=== PATIENT | male | born 1975 | race Caucasian/White ===

== ENCOUNTER 2021-04-09 17:40 | Inpatient (IN) | payer MEDICAID ==
[~2021-04-09] VITALS: Ht 185.4 cm; Wt 88.9 kg
--- NOTE | 2021-04-09 18:11 | NUR ---
[id number] FRM HOME FOR CHEST PAIN/PALPITATION. SVT AT SCENE. ADENOSINE 6MG GIVEN WASTE BALER. RATES CHEST PAIN 5/10. IN ROOM AIR AND DENIES SOB. RESPIRATION REGULAR AND UNLABORED. ATTACHED TO THE MONITOR.
[2021-04-09] MEDS ORDERED: ASPIRIN 325 MG TABLET ONE (18:17)
[2021-04-09] MEDS ORDERED: METOPROLOL TARTRATE INJ 5 MG/5 ML AMPUL ONE ×2 (18:17→19:48)
[2021-04-09 18:26] LABS: BASOPHILS # (AUTO) 0.1 K/uL (0.0-0.2); LYMPHOCYTES # (AUTO) 1.7 K/uL (0.8-4.8)
[2021-04-09 18:30] LABS: BASOPHILS % (AUTO) 0.7 % (0.0-2.0); EOSINOPHILS % (AUTO) 5.9 % (0.0-6.0); HEMATOCRIT 53 % (39-51); HEMOGLOBIN 18.3 g/dL (13.5-17.5); LYMPHOCYTES % (AUTO) 18.8 % (20.0-44.0); MEAN CORPUSCULAR HGB CONC 35 g/dl (31.0-36.0); MEAN CORPUSCULAR VOLUME 91 fL (80-96); MONOCYTES # (AUTO) 0.8 K/uL (0.1-1.30); MONOCYTES % (AUTO) 8.7 % (2.0-12.0); NEUTROPHILS # (AUTO) 5.9 K/uL (1.8-8.9); NEUTROPHILS % (AUTO) 65.9 % (43.0-81.0); PLATELET COUNT (AUTO) 173 K/uL (150-450); RED BLOOD CELL COUNT(AUTO) 5.81 MIL/uL (4.5-6.0); WHITE BLOOD COUNT (AUTO) 8.9 K/uL (4.3-11.0)
[2021-04-09] MEDS ORDERED: METOPROLOL TARTRATE INJ 5 MG/5 ML AMPUL IVP ONE (18:30)
[2021-04-09] MEDS ORDERED: ASPIRIN 325 MG TABLET PO ONE (18:30)
[2021-04-09 18:46] LABS: ALBUMIN 4.3 g/dL (3.4-5.0); BILIRUBIN,DIRECT 0.3 mg/dL (0.0-0.2); BILIRUBIN,TOTAL 2.5 mg/dL (0.2-1.0); CREATININE 1.4 mg/dL (0.6-1.3); POTASSIUM 3.8 mmol/L (3.5-5.1); TOTAL PROTEIN, SERUM 7.6 g/dL (6.4-8.2)
--- NOTE | 2021-04-09 19:26 | NUR ---
ENDORSED TO KEYON GANNON.
[2021-04-09 19:30] LABS: EOSINOPHILS % (MANUAL) 7 % (0-4); LYMPHOCYTES % (MANUAL) 29 % (16-48); MONOCYTES % (MANUAL) 5 % (0-11.0); NEUTROPHILS % (MANUAL) 59 (42-76)
--- NOTE | 2021-04-09 19:34 | NUR ---
AMEENAID SWABBED, SENT TO LAB.
--- NOTE | 2021-04-09 19:58 | NUR ---
NOTED PT'S HR TO BE IN THE 170'S, ER MD AWARE. AWAITING ORDERS.
--- NOTE | 2021-04-09 19:59 | NUR ---
LOPRESSOR 5MG IVP ORDER PLACED BY JUANY MAJANO. PT'S ANAYELI 88/75. OKAY TO GIVE LOPRESSOR BY JUANY MAJANO.
[2021-04-09] MEDS ORDERED: METOPROLOL TARTRATE INJ 5 MG/5 ML AMPUL IV ONE (20:00)
[2021-04-09] MEDS ORDERED: IV NS 0.9% 1,000 ML BAG IV ONE (20:00)
[2021-04-09] MEDS ORDERED: ADENOSINE 6 MG/2 ML VIAL ONE (20:06)
--- NOTE | 2021-04-09 20:17 | NUR ---
ER MD ORDERED ADENOSINE 6MG IVP. BEFORE ADMINISTERING THE MEDICATION, PT CONVERTED TO SR 81. ADENOSINE HELD.
[2021-04-09] MEDS ORDERED: ADENOSINE 6 MG/2 ML VIAL IVP ONE (20:30)
--- NOTE | 2021-04-09 20:45 | NUR ---
tele [phone]
--- NOTE | 2021-04-09 20:55 | NUR ---
REPORT GIVEN TO DONNIE GANNON FOR JOI
[2021-04-09 21:00] VITALS: BP 92/69
--- NOTE | 2021-04-09 21:00 | NUR ---
HEALTH PROMOTION COORDINATORPROTECTIVE SERVICES CASE WORKER NOTE PT TRANSPORTED VIA GURNEY TO UNIT AT THIS TIME. PT ADMITTED TO TELE UNDER DR. FERRO FOR ADMITTING DX OF PSVT. A/O X3 WITH PERIODS OF CONFUSION. PT IS STABLE ON ROOM AIR. NO SOB OR S/S OF RESPIRATORY DISTRESS NOTED. PT ON EXTERNAL VOCATIONAL REHABILITATION TEACHER READING SR AT 75 BPM. PT HAS NO C/O PAIN OR DISCOMFORT AT THIS TIME. IV ACCESS IN RAC #18, INTACT AND PATENT. ORIENTED PT TO STAFF, UNIT, AND ROOM. SAFETY PRECAUTIONS MAINTAINED. BED IN LOWEST LOCKED POSITION, HOB ELEVATED, SIDE RAILS UP X2, BED ALARM ON. CALL LIGHT AND TABLE WITHIN REACH. WILL CONTINUE TO MONITOR.
--- NOTE | 2021-04-09 21:17 | NUR ---
Ju reilly in [facility] - 04/09/21 at 2117 by JARET PATIENT TAKEN UP TO ASSIGNED ROOM VIA ACLS PROTOCOLS
--- NOTE | 2021-04-09 21:17 | NUR ---
PATIENT TAKEN UP TO ASSIGNED ROOM VIA ACLS PROTOCOLS
--- NOTE | 2021-04-09 21:20 | NUR ---
PT TRANSFERED PER ACLS PROTOCOL
[2021-04-09] MEDS ORDERED: ZOLPIDEM TARTRATE 5 MG TABLET PO PRN (21:30)
[2021-04-09] MEDS ORDERED: ACETAMINOPHEN 650 MG/20.3 ML UDC PO PRN (21:30)
--- NOTE | 2021-04-09 23:12 | NUR ---
RN NOTE INFORMED DR. FERRO THAT PT'S TROPONIN RESULTED AT 1.773. PREVIOUSLY AT 0.166. RECEIVED ORDERS TO KEEP PT NPO POST MIDNIGHT AND START IVF D5 NS @ 75ML/HR. ORDERS READ BACK AND CARRIED OUT. WILL CONTINUE TO MONITOR.
[2021-04-09] MEDS ORDERED: IV D5/ 0.9% NACL 1,000 ML IV ONE (23:30)
[2021-04-10] VITALS: BP_SYST 86; BP_SYST 99; BP_DIAS 60; BP_DIAS 61
--- NOTE | 2021-04-10 06:32 | NUR ---
WAX BALL MOLDER CLOSING NOTE PT IS IN BED WITH EYES CLOSED, AROUSABLE TO STIMULATION. A/O X3. PT IS STABLE ON ROOM AIR. NO SOB OR S/S OF RESPIRATORY DISTRESS NOTED. PT ON EXTERNAL ACQUISITION ASSOCIATE READING SR AT 63 BPM. PT HAS NO C/O PAIN OR DISCOMFORT AT THIS TIME. IV ACCESS IS INTACT, PATENT, AND FLUSHING WELL. PT KEPT NPO POST MIDNIGHT PER DR. FERRO'S ORDER. ALL NEEDS HAVE BEEN MET. SAFETY PRECAUTIONS MAINTAINED AT ALL TIMES. BED IN LOWEST LOCKED POSITION, HOB ELEVATED, SIDE RAILS UP X2, BED ALARM ON. CALL LIGHT AND TABLE WITHIN REACH. WILL ENDORSE TO ONCOMING NURSE FOR JOI.
--- NOTE | 2021-04-10 06:47 | NUR ---
RN SALAS HERNANDEZ FROM LAB CALLED AND REPORTED PT'S TROPONIN AT 2.065. NOTIFIED DR. MARTINEZ OF RESULTS. AWAITING ORDERS.
--- NOTE | 2021-04-10 07:20 | NUR ---
RN OPENING NOTE RECEIVED PATIENT IN BED. A/O X4. ON ROOM AIR, NO SOB NOTED. IN NO APPARENT DISTRESS. NO REPORTS OF CHEST PAIN OR DISCOMFORT AT THIS TIME. TELE READING SHOW SR 70s. CURRENTLY ON NPO STATUS. IV ACCESS ON R AC #18 G, D5NS RUNNING AT 75 ML/HR, INTACT AND PATENT. SAFETY MEASURES MAINTAINED. BED IN LOWEST POSITION, BRAKES LOCKED. SIDE RAILS UP X2. CALL LIGHT WITHIN REACH. WILL CONTINUE PLAN OF CARE.
[2021-04-10 08:00] VITALS: BP 105/67
[2021-04-10] MEDS: METOPROLOL TARTRATE 25 MG TABLET PO SCH ×2 (08:05→16:17)
[2021-04-10] MEDS ORDERED: ATORVASTATIN 40 MG TABLET PO SCH (08:30)
[2021-04-10] MEDS ORDERED: ENOXAPARIN SODIUM 80 MG/0.8 ML DISP.SYRIN SQ SCH (09:00)
[2021-04-10] MEDS ORDERED: ASPIRIN EC 81 MG TABLET.DR PO SCH (09:00)
[2021-04-10 09:17] VITALS: BP 105/67
--- NOTE | 2021-04-10 12:22 | NUR ---
RN NOTE SPOKE WITH DR. MARTINEZ, NO PROCEDURE WILL HAPPEN TODAY. INFORMED DR. FERRO AND ORDERED CCHO DIET TODAY AND TO KEEP THE PT ON NPO AFTER MIDNIGHT. ORDER CARRIED OUT.
[2021-04-10 16:00] VITALS: BP 151/90
[2021-04-10 16:17] VITALS: BP 103/74
[2021-04-10] MEDS ORDERED: CLOPIDOGREL BISULFATE 75 MG TABLET PO SCH (18:00)
--- NOTE | 2021-04-10 18:16 | NUR ---
RN CLOSING NOTE PATIENT RESTING IN BED. A/O X4. ON ROOM AIR, NO SOB NOTED. IN NO APPARENT DISTRESS. TELE READING SHOW SR 70s. DR FERRO ORDERED CARDIAC DIET THRU TEXT MESSAGE, ORDER CARRIED OUT. IV ACCESS ON R AC #18 G, INTACT AND PATENT. DUE MEDS GIVEN ORDERED. SAFETY MEASURES MAINTAINED. BED IN LOWEST POSITION, BRAKES LOCKED. SIDE RAILS UP X2. CALL LIGHT WITHIN REACH. WILL ENDORSE CONTINUITY OF CARE TO ONCOMING SHIFT.
--- NOTE | 2021-04-10 18:50 | NUR ---
RN NOTE: AMA PATIENT LEFT AGAINST MEDICAL ADVICE. MD DR FERRO IS MADE AWARE. PT SIGNED AMA FORM. HE SAID HE WANTS TO HAVE A SECOND OPINION WITH OTHER HOSPITAL.
== END 2021-04-10 18:50 | disposition left against medical advice (07) | DRG 201 ==
LOC: ER 18:34 → TELE 21:16
PROVIDERS: ADMIT Internal Medicine; ATTEND Internal Medicine
DX: I47.1 Supraventricular tachycardia (principal); I21.4 Non-ST elevation (NSTEMI) myocardial infarction; Z20.822 Contact with and (suspected) exposure to COVID-19; E78.5 Hyperlipidemia, unspecified; Z72.0 Tobacco use; Z82.49 Family history of ischemic heart disease and other diseases of the circulatory system
CPT/HCPCS: 36415; 71045-TC; 80048-TC; 80061-TC; 80076-TC; 84443-TC; 84484-TC; 85025-TC; 93307-TC; C9803; G0378; J0153; J1650; J3490; J7030; J7042